=== PATIENT | male | born 1955 | race Two or more races ===

== ENCOUNTER → 2024-09-04 | Outpatient (CLI) | payer MEDICARE, MEDICAID ==
[2024-09-04] VITALS (9 sets, daily range): BP systolic 107–151; BP diastolic 56–86; PULSE 49–60; RESP 11–20; TEMP 97.4; O2SAT 96–98
[~2024-09-04] MED LIST: ATOR-507 PO; ENAL1TAB48 PO; GLIP5TAB21 PO; METF-372 PO; MIDAZOLAM HCL 2MG/2ML 2ml VIAL (1mg/ml) ONE; MULT-733 OR; OMEG1400 PO; fentaNYL CITRATE 100 MCG/2 ML VL ONE
[2024-09-04] MEDS: MIDAZOLAM HCL 2MG/2ML 2ml VIAL (1mg/ml) IV ONE (09:00)
[2024-09-04] MEDS: fentaNYL CITRATE 100 MCG/2 ML VL IV ONE (09:00)
[2024-09-04] MEDS: LIDOCAINE 2%HCL (LOCAL ANESTH.) INJ 10ml MDV ONE (09:02)
[2024-09-04] MEDS: GELATIN 1 SPONGE SIZE 50 TOP ONE (09:07)
--- NOTE | 2024-09-04 12:31 | DVH ---
CT ABDOMEN WITHOUT CONTRAST, HISTORY: Cirrhosis with liver mass PROCEDURE: Informed consent was obtained. The patient was placed supine on the CT scanner, and limite d CT/US was performed of the liver. IV sedation was administered. The skin over the area of interest was prepped with chlorhexidine which was allowed to dry and draped in the usual sterile fashion. Time out was performed. 1% local lidocaine was administered. With intermittent CT/US guidance, Temno 17 g auge outer coaxial guiding needle was advanced into the centrally located liver mass. Single core bio psies were obtained using Temno 18 gauge inner core biopsy needle. The specimens were placed in forma gisselle and sent to pathology for analysis. The needle was withdrawn , and the visceral tract embolized w ith gelfoam pledgets. 10 minutes of manual pressure held. Post procedural images were obtained. No im mediate complication was identified. DLP = 2617 mGy-cm. SEDATION: Dr. Radha Harris was personally responsible for the administration of moderate sedation during the procedure performed, including the use of an independent trained observer who had no other duties during the procedure. The drugs utilized were IV fentanyl and versed (see nursing log for details). The total time of supervision by the attending physician was approximately 45 minutes. FINDINGS: Centrally located liver mass. Intra-procedural images demonstrate biopsy needle within targ eted lesion. Post procedural images do not demonstrate any significant hemorrhage. IMPRESSION: US/CT guided centrally located liver mass biopsy. Pathology results pending. 3 hour recovery bedrest.
== END | disposition home or self-care (01) ==
LOC: XYW 08:35
PROVIDERS: ATTEND Student in an Organized Health Care Education/Training Program
DX: K74.60 Unspecified cirrhosis of liver (principal); C22.7 Other specified carcinomas of liver; K76.89 Other specified diseases of liver; D69.6 Thrombocytopenia, unspecified; R16.0 Hepatomegaly, not elsewhere classified; F17.210 Nicotine dependence, cigarettes, uncomplicated; Z79.84 Long term (current) use of oral hypoglycemic drugs; Z79.899 Other long term (current) drug therapy
CPT/HCPCS: 47000; 76942; 77012; 88305; 88342; J2003; J2250; J3010; 10005; 74150; 76705; 99152; 99153

== ENCOUNTER 2024-09-06 08:40 | Day surgery (SDC) | payer MEDICARE, MEDICAID ==
[2024-09-03 11:00] LABS: Urine Bacteria None Seen /hpf (None Seen)
[2024-09-03 11:03] LABS: Basophils # (auto) 0 10 ^3/uL (0-0.2); Basophils % (auto) 0.9 % (0.0-2.0); Eosinophils # (auto) 0.2 10 ^3/uL (0-0.8); Eosinophils % (auto) 3.1 % (0.0-7.0); Hematocrit 38.9 % (41.0-53.0); Hemoglobin 13.3 g/dL (13.5-17.5); Lymphocytes # (auto) 2.1 10 ^3/uL (0.4-5.4); Lymphocytes % (auto) 37.1 % (10.0-50.0); Mean Corpuscular Hemoglobin 31.3 pg (28.0-32.0); Mean Corpuscular Hgb Conc. 34.1 g/dL (32.0-36.0); Mean Corpuscular Volume 91.8 fL (80.0-100.0); Monocytes # (auto) 0.5 10 ^3/uL (0-1.3); Monocytes % (auto) 9.5 % (0.0-12.0); Neutrophils # (auto) 2.8 10 ^3/uL (1.6-8.6); Neutrophils % (auto) 49.4 % (37.0-80.0); Platelet Count (auto) 87 10^3/uL (140-450); Red Blood Cells 4.24 10^6/uL (4.5-5.90); Red Cell Distribution Width 14.9 % (11.8-14.3); White Blood Cell 5.7 10^3/uL (4.4-10.8)
[2024-09-03 11:23] LABS: Urine Blood Negative /uL (Negative); Urine Clarity Clear (Clear); Urine Color Light-Yellow (Yellow); Urine Protein, UAD Negative (Negative); Urine Squamous Epithelial Cell None Seen /hpf (<5); Urine Urobilinogen 2 mg/dL (Negative); Urine WBC < 1 /HPF (0-3); Urine pH 6.5 (5.0-9.0)
[2024-09-03 11:24] LABS: INR 1.12 (0.9-1.15); Partial Thromboplastin Time 28.1 SEC (24.5-34.5); Prothrombin Time 11.7 sec (9.3-11.8)
[2024-09-03 11:32] LABS: Albumin 4.8 g/dL (3.2-4.8); Alkaline Phosphatase 102 U/L (46-116); BUN/Creatinine Ratio 11.3 (10.0-20.0); Bilirubin, Total 0.7 mg/dL (0.2-1.0); Blood Urea Nitrogen 9 mg/dL (9-23); Calcium 10.3 mg/dL (8.7-10.4); Carbon Dioxide 25 mmol/L (20-31); Potassium 4.8 mmol/L (3.5-5.1); Sodium 140 mmol/L (136-145); Total Protein 7.6 g/dL (5.7-8.2)
[2024-09-03 11:39] LABS: Alanine Aminotransferase 51 U/L (7-40); Aspartate Aminotransferase 40 U/L (13-40); Glucose 147 mg/dL (74-106)
[2024-09-03 11:44] LABS: Anion Gap 7 (5-15)
[2024-09-03 11:49] LABS: Chloride 108 mmol/L (98-107)
[~2024-09-06] VITALS: Ht 170.2 cm; Wt 88.9 kg
[~2024-09-06 08:40] MED LIST changes: -MIDAZOLAM HCL 2MG/2ML 2ml VIAL (1mg/ml) ONE; -fentaNYL CITRATE 100 MCG/2 ML VL ONE
[2024-09-06] MEDS ORDERED: PROPOFOL 10 MG/ML 20 ML IV ONE (09:25)
[2024-09-06] MEDS ORDERED: fentaNYL CITRATE 100 MCG/2 ML VL ONE (09:31)
[2024-09-06 09:56] VITALS: PULSE 54; RESP 12; TEMP 98; O2SAT 93
--- NOTE | 2024-09-06 09:56 | DVHHP2 ---
GI H&P Pre-Op Assessment Date: 09/06/24 Chief complaint: Positive Cologuard test HPI: per clinic note Past medical history: per clinic note Past surgical history: per clinic note Family history: per clinic note Physical exam: General: NAD, AAOX3 HEENT: PERRL, no scleral icterus, normal hearing, gums without lesions or bleeding, oropharynx clear without erythema or exudate. Neck: Supple without enlargement of the thyroid, or lymphadenopathy. Chest: Normal size and shape, no tenderness, lung masters clear to auscultation and percussion, nonlabored breathing. Heart: RRR, no murmur Abdomen: non-distended, no tenderness to palpation, +BS, no hepatosplenomegaly Extremities: no edema Neurological: CN II-XII intact, sensation intact in all extremities, 5+ strength in all extremities Skin: No rashes, No jaundice Assessment: - positive Cologuard test Plan: - Colonoscopy - Risks (bleeding, infection, perforation, reaction to sedation medications and cardiopulmonary arrest) and benefit of the procedure were explained to patient. Patient agrees to undergo the procedure. DIANA CAMP MD Sep 06, 2024 09:56
--- NOTE | 2024-09-06 09:58 | DVHDS2 ---
Physician Discharge Progress N Final Diagnosis: Colon polyps, internal hemorrhoids Operations or Procedures: Operations or Procedures Colonoscopy with hot snare polypectomy Condition on Discharge: Good Disposition: Home Discharge Instructions: Diet: Regular Activity: No Restrictions, As Tolerated Medications: Resume previous home medications Follow Up Care: Discharge Statement: "Patient was advised to return to the ER or call 911 if any headaches, dizziness, shortness of breath, chest pain, abdominal pain, bleeding, fevers, or worsening of medical condition. Patient was counseled about treatment plan, medications, possible side effects, patientverbalized understanding. All questions were answered to the best of my ability. This discharge took greater then 30 minutes in planning, reviewing documentation, counseling the patient, and discussing with other team members." DIANA CAMP MD Sep 06, 2024 09:58
--- NOTE | 2024-09-06 09:58 | DVHOP2 ---
Operative Report DATE OF OPERATION: 09/06/24 PROCEDURE: Colonoscopy. PREOPERATIVE INDICATION: The patient is a 68 -year-old male undergoing colonoscopy for positive Cologuard test POSTOPERATIVE DIAGNOSES: 1. 2 mm transverse colon polyp was removed with hot snare and retrieved. 2. 5 mm sigmoid polyp was removed with hot snare and retrieved. 3. Two (3 mm) rectal polyps were removed with hot snare and retrieved. 4. Internal hemorrhoids PROCEDURE PERFORMED BY: Connor Artis M.D. SCOPE: Olympus videocolonoscope. ASA CLASS: 3 PREOPERATIVE MEDICATIONS: MAC with Dr Knox PROCEDURE IN DETAIL: After obtaining an informed consent, the patient was placed on left lateral decubitus position. He was then sedated with the above medications. A rectal examination was performed that was normal. The colonoscope was then passed through the anus into the rectosigmoid and through the descending, transverse, and ascending colon up to the cecum with visualization of the appendiceal orifice, base of the cecum and the ileocecal valve. A 2 mm transverse colon polyp was removed with hot snare and retrieved. A 5 mm sigmoid polyp was removed with hot snare and retrieved. Two (3 mm) rectal polyps were removed with hot snare and retrieved. There were internal hemorrhoids. The colonoscope was then withdrawn. The patient tolerated the procedure well without difficulty. WITHDRAWAL TIME: 12 minutes QUALITY OF THE PREP: [place] Bowel Prep score: 6 COMPLICATIONS : None SPECIMENS: Colon polyps DISPOSITION: D/C to home PLAN: 1. Repeat colonoscopy base on biopsy result CONNOR ARTIS MD Sep 06, 2024 09:58
[2024-09-06 10:35] VITALS: BP 148/75; PULSE 58; RESP 15; O2SAT 96
--- NOTE | 2024-09-11 15:22 | ECG ---
[facility] Test Date: 2024-09-11 Test Time: 02:26:04 Pat Name: BIBI LARA Department: Respiratoy Room: Gender: M Staff Appraiser: : [id number] Requested By: DIANA CAMP Order Number: [id number] Reading MD: Manjinder Hidalgo Measurements Intervals [place] Rate: 86 P: 0 HI: 0 QRS: -44 QRSD: 147 T: 68 QT: 420 QTc: 503 Interpretive Statements Atrial fibrillation RBBB and LAFB Electronically Signed On 09-13-2024 20:23:57 PDT by Manjinder Hidalgo Please click the below link to view image of tracing.
== END 2024-09-06 10:45 | disposition home or self-care (01) ==
LOC: GI 08:40
PROVIDERS: ATTEND Internal Medicine Gastroenterology
DX: R19.5 Other fecal abnormalities (principal); D12.5 Benign neoplasm of sigmoid colon; D12.3 Benign neoplasm of transverse colon; K62.1 Rectal polyp; K64.8 Other hemorrhoids; K74.60 Unspecified cirrhosis of liver; I10 Essential (primary) hypertension; E11.9 Type 2 diabetes mellitus without complications; E78.00 Pure hypercholesterolemia, unspecified; E66.9 Obesity, unspecified; Z68.30 Body mass index [BMI] 30.0-30.9, adult; Z79.01 Long term (current) use of anticoagulants; Z79.84 Long term (current) use of oral hypoglycemic drugs; Z79.899 Other long term (current) drug therapy; Z98.890 Other specified postprocedural states
CPT/HCPCS: 36415; 45385; 80053; 81001; 82962; 85025; 85610; 85730; 88305; 93005; J2704; J3010; J7030